=== PATIENT | female | born 1965 | race African-American/Black ===

== ENCOUNTER 2017-05-21 19:59 | Emergency (ER) | payer BC ==
[~2017-05-21] VITALS: Ht 170.2 cm; Wt 72.6 kg
[2017-05-21 20:02] VITALS: BP 160/100
--- NOTE | 2017-05-21 20:12 | NUR ---
Pt taken to bed 2.
--- NOTE | 2017-05-21 20:20 | NUR ---
51/F c/o mid abd pain x 2 days accompanied by N/V/D. No active vomiting noted at this time. Pt describes pain as sharp, non radiating, 9/10. Abd soft, non tender, active bowel sounds x4 quadrants. AOX4, clear speech, ambulatory with steady gait. VSS. No distress noted. Hx HTN, not on active medications at this time per pt
--- NOTE | 2017-05-21 20:25 | NUR ---
Patient being evaluated by Dr. Petersen at bedside.
[2017-05-21] MEDS ORDERED: KETOROLAC 30 MG/ML VIAL IVP ONE (20:35)
[2017-05-21] MEDS ORDERED: NACL 0.9% 1,000 ML IV ONE (20:35)
[2017-05-21 20:53] LABS: BASOPHILS % (AUTO) 0.5 % (0.0-2.0); EOSINOPHILS # (AUTO) 0.1 K/uL (0-0.4); EOSINOPHILS % (AUTO) 0.9 % (0.0-4.0); HEMATOCRIT 43.6 % (36-48); HEMOGLOBIN 14.4 g/dL (12.0-16.0); LYMPHOCYTES # (AUTO) 1.9 K/uL (2.5-16.5); LYMPHOCYTES % (AUTO) 24.7 % (20.5-51.1); MEAN CORPUSCULAR HEMOGLOBIN 32 pg (27-31); MEAN CORPUSCULAR HGB CONC 33 g/dL (33-37); MEAN CORPUSCULAR VOLUME 97 fL (80-94); MONOCYTES # (AUTO) 0.5 K/uL (0.8-1.0); NEUTROPHILS # (AUTO) 5.1 K/uL (1.8-7.7); NEUTROPHILS % (AUTO) 66.9 % (42.2-75.2); PLATELET COUNT (AUTO) 149 K/uL (140-450); RED CELL DISTRIBUTION WIDTH 13.6 % (11.6-13.7); WHITE BLOOD COUNT (AUTO) 7.6 K/uL (4.8-10.8)
[2017-05-21 21:05] LABS: ANION GAP 12.5 (8-16); CARBON DIOXIDE 26.3 mmol/L (21-32); POTASSIUM 3.8 mmol/L (3.5-5.1)
[2017-05-21 21:11] LABS: ALBUMIN 3.5 g/dL (3.4-5.0); TOTAL BILIRUBIN 0.2 mg/dL (0.0-1.0)
--- NOTE | 2017-05-21 21:39 | NUR ---
IV removed, catheter intact and site benign. Applied folded 4x4 gauze and tape to stop bleeding.
--- NOTE | 2017-05-21 21:40 | NUR ---
Patient discharged with v/s stable. Written and verbal after care instructions given and explained. Patient alert, oriented and verbalized understanding of instructions. Ambulatory with steady gait. All questions addressed prior to discharge. ID band removed. Patient advised to follow up with PMD. Rx of Tramadol 50mg and Zofran ODT 4mg given. Patient educated on indication of medication including possible reaction and side effects. Opportunity to ask questions provided and answered.
[2017-05-21 21:41] VITALS: BP 150/92
== END 2017-05-21 21:41 | disposition home or self-care (01) ==
LOC: MED 19:59
DX: K52.9 Noninfective gastroenteritis and colitis, unspecified (principal); I10 Essential (primary) hypertension
CPT/HCPCS: 36415; 80053; 81002; 81025; 85025; 96361; 96374; 99284; J1885; J7030